=== PATIENT | male | born 2000 ===

== ENCOUNTER 2021-08-08 11:20 | Outpatient (REF) | payer MEDICAID, SELFPAY ==
[2021-08-08 12:05] LABS: COVID-19 Test Negative (Negative); IDNOW Serial# 16C4AD1C
== END 2021-08-08 11:21 | disposition home or self-care (01) ==
LOC: HO.LAB 11:20
PROVIDERS: Visit Provider Internal Medicine
DX: Z20.822 Contact with and (suspected) exposure to COVID-19 (principal)
CPT/HCPCS: 36415; 87635; C9803